=== PATIENT | male | born 1965 | race Hispanic/Latino ===

== ENCOUNTER 2017-05-27 11:29 | Day surgery (SDC) | payer BC ==
[~2017-05-27 11:29] MED LIST: ALLERGY RE50 MCG/ACT; AMOX/K CLAV875 M1 PO; AZELASTINE0.1 %; CVS OMEPRAZOLE20 MG PO; LISINOP/HCTZ1 TA2 PO; NEXIUM40 M1 PO; PRED FORTE1 % OP; ZESTRIL10 M1 PO
[2017-05-27 13:31] VITALS: BP 141/86
[2017-05-27] MEDS ORDERED: PERCOCET 5/325M1 TAB PO (13:47)
== END 2017-05-27 14:15 | disposition home or self-care (01) | DRG 419 ==
LOC: ORM 11:29
PROVIDERS: ATTEND Surgery
PROC: 0FT44ZZ Resection of Gallbladder, Percutaneous Endoscopic Approach (ICD-10-PCS; principal; 2017-05-27)
DX: K81.1 Chronic cholecystitis (principal); I10 Essential (primary) hypertension; K21.9 Gastro-esophageal reflux disease without esophagitis; Z87.891 Personal history of nicotine dependence
CPT/HCPCS: J2710

== ENCOUNTER 2017-12-25 12:35 | Day surgery (SDC) | payer BC ==
[~2017-12-25] VITALS: Ht 170.2 cm; Wt 93.0 kg
[~2017-12-25 12:35] MED LIST changes: +LATANOPROST0.005 % OP; +LIPITOR10 M1 PO; +METFORMIN500 MG PO; +PERCOCET 5/325M1 TAB PO
[2017-12-25 15:28] VITALS: BP 106/56
== END 2017-12-25 15:36 | disposition home or self-care (01) | DRG 392 ==
LOC: ENDO 12:35
PROVIDERS: ATTEND Internal Medicine Gastroenterology
PROC: 0DBN8ZX Excision of Sigmoid Colon, Via Natural or Artificial Opening Endoscopic, Diagnostic (ICD-10-PCS; principal; 2017-12-25)
DX: R93.3 Abnormal findings on diagnostic imaging of other parts of digestive tract (principal); E11.9 Type 2 diabetes mellitus without complications; R10.11 Right upper quadrant pain; K63.5 Polyp of colon; K64.4 Residual hemorrhoidal skin tags; K57.30 Diverticulosis of large intestine without perforation or abscess without bleeding; K21.9 Gastro-esophageal reflux disease without esophagitis; E78.00 Pure hypercholesterolemia, unspecified; I10 Essential (primary) hypertension

== ENCOUNTER 2018-01-22 12:14 | Day surgery (SDC) | payer BC ==
[2018-01-22 15:20] VITALS: BP 111/72
== END 2018-01-22 15:30 | disposition home or self-care (01) | DRG 392 ==
LOC: ENDO 12:14 → ORM 16:15 → ENDO 17:30 → ORM 17:30
PROVIDERS: ATTEND Internal Medicine Gastroenterology
PROC: 0DB48ZX Excision of Esophagogastric Junction, Via Natural or Artificial Opening Endoscopic, Diagnostic (ICD-10-PCS; principal; 2018-01-22)
PROC: 0DB68ZX Excision of Stomach, Via Natural or Artificial Opening Endoscopic, Diagnostic (ICD-10-PCS; 2018-01-22)
DX: K29.70 Gastritis, unspecified, without bleeding (principal); K21.0 Gastro-esophageal reflux disease with esophagitis; K31.7 Polyp of stomach and duodenum; Q40.8 Other specified congenital malformations of upper alimentary tract; E78.00 Pure hypercholesterolemia, unspecified; I10 Essential (primary) hypertension; E11.9 Type 2 diabetes mellitus without complications; K57.30 Diverticulosis of large intestine without perforation or abscess without bleeding; Z87.19 Personal history of other diseases of the digestive system

== ENCOUNTER 2021-05-31 11:16 | Emergency (ER) | payer OTHER ==
[~2021-05-31] VITALS: Ht 170.2 cm; Wt 75.0 kg
[2021-05-31] MEDS ORDERED: SB ALLERGY10 MG PO (11:40)
[2021-05-31] MEDS ORDERED: DECADRON4 MG PO (11:40)
[2021-05-31] MEDS ORDERED: TAMSULOSIN HCL0.4 MG PO (11:45)
[2021-05-31] MEDS ORDERED: CRESTOR5 M1 (11:46)
[2021-05-31 11:48] VITALS: BP 154/76
== END 2021-05-31 11:55 | disposition home or self-care (01) | DRG 918 ==
LOC: ED 11:16
DX: T60.1X1A Toxic effect of halogenated insecticides, accidental (unintentional), initial encounter (principal); L29.9 Pruritus, unspecified; I10 Essential (primary) hypertension; Y92.89 Other specified places as the place of occurrence of the external cause; Y99.0 Civilian activity done for income or pay